=== PATIENT | female | born 1995 ===

== ENCOUNTER 2018-06-01 15:20 | Emergency (ER) | payer OTHER ==
--- NOTE | 2018-06-01 16:12 | UC ---
Laceration HPI - HPI Summary HPI Summary: The patient is a 22 y/o F presenting to [facility] c/o laceration to her right lower leg last night at approximately 21:00. She was moving a bed frame when it fell and grazed her leg, leaving a cut on the lateral part of her vanegas. She states that the laceration was not bleeding at first, but has bled since, and there is redness near the cut. There is no tingling or numbness present. She is not currently in any pain. She called the [facility], who told her to present to [facility] in case of need for stitches. - History Of Current Complaint Chief Complaint: UCLaceration Stated Complaint: LEG LACERATION Time Seen by Provider: 06/01/18 15:57 Hx Obtained From: Patient Laceration Location: Calf - right lateral part of right lower leg near Mechanism Of Injury: Blunt Trauma - bed frame Onset/Duration: Sudden Onset, Lasting Hours, Still Present Severity: Mild Pain Intensity: 0 Pain Scale Used: 0-10 Numeric Aggravating Factors: Nothing Full Body (No Head): 1 - right lower leg, lateral near vanegas - Allergies/Home Medications Allergies/Adverse Reactions: Allergies Allergy/AdvReac Type Severity Reaction Status Date / Time No Known Allergies Allergy Verified 06/01/18 15:40 Home Medications: Home Medications Levonorgestrel-Ethin Estradiol [Falmina-28 Tablet] 1 tab PO DAILY 06/01/18 [ History Confirmed 06/01/18] PMH/Surg Hx/FS Hx/Imm Hx Other Endocrine History: NEGATIVE: diabetes Other Cardiovascular History: NEGATIVE: HTN - Surgical History Surgical History: None - Family History Known Family History: Negative: Cardiac Disease, Hypertension - Social History Alcohol Use: Weekly Substance Use Type: None Smoking Status (MU): Never Smoked Tobacco - Immunization History Most Recent Tetanus Shot: Will need Review of Systems Skin: Other - laceration to right lower leg near vaengas with bleeding and erythema Neurological: Other - NEGATIVE: numbness/tingling All Other Systems Reviewed And Are Negative: Yes Physical Exam - Summary Physical Exam Summary: General: well-appearing, no pain distress Skin: warm, color reflects adequate perfusion, dry, 5cm partial thickness laceration to the right anterolateral lower leg Head: normal Eyes: EOMI, JEREMIAH ENT: normal Neck: supple, nontender Respiratory: CTA, breath sounds present Cardiovascular: RRR Abdomen: soft, nontender Bowel: present Musculoskeletal: normal, strength/ROM intact Neurological: sensory/motor intact, A&O x3 Psychological: affect/mood appropriate Triage Information Reviewed: Yes Vital Signs: Initial Vital Signs Temp 99.0 F 06/01/18 15:35 Pulse 81 06/01/18 15:35 Resp 18 06/01/18 15:35 BP 127/80 06/01/18 15:35 Pulse Ox 100 06/01/18 15:35 Vital Signs Reviewed: Yes Laceration Repair - Laceration Repair 1 Procedure Summary: 5cm partial thickness laceration to right anterolateral lower leg Description: Linear : No Repair Necessary - greater than 12 hours since wound occurred Cleansing Completed Via Routine Prep: Yes Closure Material: SteriStrips - antibiotic ointment on laceration Closure Method: Single Layer Suture Of: Skin Laceration Course/Dx - Course/Dx Course Of Treatment: Medications reviewed. Allergies noted. TDAP GIVEN TODAY. NO SUTURES THE WOUND IS GREATER THAN 12 HOURS OLD AND IS PARTIAL THICKNESS. WOUND CLEANED AND STERI STRIPPED. DISCUSSED CLEANING AND APPLYING ABX OINTMENT TO THE WOUND. - Differential Dx - Laceration/Wound Provider Diagnoses: RIGHT LEG PARTIAL THICKNESS LACERATION Discharge - Sign-Out/Discharge Documenting (check all that apply): Patient Departure - Patient will be discharged home. - Discharge Plan Condition: Stable Disposition: HOME Patient Education Materials: Laceration Without Closure (ED) Referrals: [facility] @ [Outside] Additional Instructions: FOLLOW UP WITH [facility] IF NOT COMPLETELY IMPROVED. GET RECHECKED FOR ANY WORSENING OF YOUR CONDITION OR QUESTIONS OR CONCERNS. - Billing Disposition and Condition Condition: STABLE Disposition: Home Attestation Statement Scribe Attestation: This is misti Robbins documenting for attending Dr. Dax Cristobal MD. User Type: Provider with Scribe Provider Attestation: The documentation recorded by the scribe accurately reflects the service I personally performed and the decisions made by me.
[2018-06-01] MEDS ORDERED: Tetan/Diph/Pertus SYR(Tdap)* 0.5 ML SYR(BOOSTRIX) use SYR IM ONE (16:17)
== END 2018-06-01 16:30 | disposition home or self-care (01) ==
LOC: UCEAST 15:20
DX: S81.811A Laceration without foreign body, right lower leg, initial encounter (principal); W20.8XXA Other cause of strike by thrown, projected or falling object, initial encounter; Y93.89 Activity, other specified; Y92.009 Unspecified place in unspecified non-institutional (private) residence as the place of occurrence of the external cause; Z23 Encounter for immunization
CPT/HCPCS: 90715; 99202; G0463